=== PATIENT | female | born 1975 | race Caucasian/White ===

== ENCOUNTER 2021-10-11 05:46 | Day surgery (SDC) | payer OTHER ==
[~2021-10-11 05:46] MED LIST: FOLIC ACID0.4 MG; LEVOTHYROXINE25 MCG
== END 2021-10-11 17:20 | disposition home or self-care (01) ==
LOC: CIR.AMB 05:46
PROVIDERS: ATTEND Obstetrics & Gynecology
DX: N84.1 Polyp of cervix uteri (principal); Z20.822 Contact with and (suspected) exposure to COVID-19

== ENCOUNTER 2021-10-22 19:33 | Emergency (ER) | payer OTHER ==
[~2021-10-22] VITALS: Ht 157.5 cm; Wt 57.6 kg
== END 2021-10-23 08:57 | disposition home or self-care (01) ==
LOC: ER 19:33
DX: N93.9 Abnormal uterine and vaginal bleeding, unspecified (principal); Z98.890 Other specified postprocedural states